=== PATIENT | male | born 1965 | race Caucasian/White ===

== ENCOUNTER 2017-02-26 19:08 | Emergency (ER) | payer MEDICAID ==
[2017-02-26 19:21] VITALS: RESP 18
[2017-02-26] MEDS ORDERED: ALBUTEROL/IPRATROPIUM 1 VIAL SOL INH ONE (19:34)
[2017-02-26] MEDS ORDERED: ONDANSETRON HCL 4 MG/2 ML 4 MG in SODIUM CHLORIDE 0.9% 100 ML 100 ML IV ONE (19:35)
[2017-02-26] MEDS ORDERED: SODIUM CHLORIDE 0.9% 1000ML 1,000 ML IV ONE (19:38)
[2017-02-26 19:40] LABS: BASOPHILS % (AUTO) 0 % (0-3); EOSINOPHILS % (AUTO) 6 % (0-9); HEMATOCRIT 38 % (39-53); MEAN CORPUSCULAR HGB CONC 33.4 gm/dl (32.0-36.0); MEAN CORPUSCULAR VOLUME 86 fL (80-100); NEUTROPHILS % (AUTO) 64.1 % (37-80)
[2017-02-26] MEDS ORDERED: ONDANSETRON HCL 4 MG/2 ML SOL ONE (19:40)
[2017-02-26] MEDS ORDERED: ALBUTEROL/IPRATROPIUM 1 VIAL SOL ONE (19:40)
[2017-02-26 19:55] LABS: ALBUMIN 3.3 gm/dl (3.4-5.0); CALCIUM 8.8 mg/dl (8.5-10.1); POTASSIUM 3.7 mMol/L (3.5-5.1)
[2017-02-26 20:02] VITALS: TEMP 97.6
[2017-02-26 20:19] LABS: APPEARANCE,URINE Clear; BILIRUBIN,URINE NEGATIVE (NEGATIVE); COLOR,URINE Yellow; GLUCOSE, URINE (UA) 1+ (NEGATIVE); KETONES,URINE NEGATIVE (NEGATIVE); LEUKOCYTE ESTERASE ,URINE NEGATIVE (NEGATIVE); NITRATE,URINE NEGATIVE (NEGATIVE); OCCULT BLOOD,URINE NEGATIVE (NEG-TRACE); UROBILINOGEN,URINE 0.2 (0.2-1.0 EU)
[2017-02-26 20:44] LABS: RBC,URINE NEGATIVE (0-3AV/HPF); WBC,URINE 0-2 (0-5AV/HPF)
[2017-02-26 22:53] VITALS: BP 126/58; PULSE 82; O2SAT 98
== END 2017-02-26 22:42 | disposition home or self-care (01) | DRG 192 ==
LOC: ED 19:08
DX: J44.1 Chronic obstructive pulmonary disease with (acute) exacerbation (principal)
CPT/HCPCS: 36415; 71010; 71275; 80053; 81001; 83880; 85025; 85378; 96365; 96374; 99284; 99285; J2405; J7620; Q9967

== ENCOUNTER 2017-10-12 14:11 | Emergency (ER) | payer MEDICAID, OTHER ==
[2017-10-12] MEDS ORDERED: SODIUM CHLORIDE 0.9% 1000ML 1,000 ML IV ONE ×2 (14:39→14:43)
[2017-10-12] MEDS ORDERED: SODIUM CHLORIDE 0.9% FLUSH 10 ML SOL IV PRN (14:43)
[2017-10-12 14:55] VITALS: TEMP 97.4
[2017-10-12 15:04] LABS: BASOPHILS % (AUTO) 1 % (0-3); EOSINOPHILS % (AUTO) 7 % (0-9); HEMATOCRIT 37 % (39-53); MEAN CORPUSCULAR HGB CONC 35.9 gm/dl (32.0-36.0); MONOCYTES % (AUTO) 4.1 % (0-12); NEUTROPHILS % (AUTO) 63.9 % (37-80)
[2017-10-12 15:05] LABS: MEAN CORPUSCULAR VOLUME 81 fL (80-100)
[2017-10-12 15:09] LABS: ALBUMIN 3.3 gm/dl (3.4-5.0); CALCIUM 8.7 mg/dl (8.5-10.1)
[2017-10-12] MEDS ORDERED: INSULIN HUMAN REGULAR 100 U/ML SOL ONE (15:26)
[2017-10-12] MEDS ORDERED: INSULIN HUMAN REGULAR 100 U/ML SOL SC SCH (15:30)
[2017-10-12 16:01] LABS: APPEARANCE,URINE Clear; BILIRUBIN,URINE NEGATIVE (NEGATIVE); COLOR,URINE Yellow; GLUCOSE, URINE (UA) 2+ (NEGATIVE); KETONES,URINE TRACE (NEGATIVE); LEUKOCYTE ESTERASE ,URINE NEGATIVE (NEGATIVE); NITRATE,URINE NEGATIVE (NEGATIVE); OCCULT BLOOD,URINE NEGATIVE (NEG-TRACE); PH,URINE 5.5; UROBILINOGEN,URINE 0.2 (0.2-1.0 EU)
[2017-10-12 16:13] LABS: AMPHETAMINES NEGATIVE (NEGATIVE); METHADONE NEGATIVE (NEGATIVE); OPIATES(OP13) NEGATIVE (NEGATIVE); OXYCODONE(OXY) NEGATIVE (NEGATIVE); PROPOXYPHENE(PPX) NEGATIVE (NEGATIVE); RBC,URINE NEGATIVE (0-3AV/HPF); TRICYCLIC ANTIDEPRESSANTS NEGATIVE (NEGATIVE); WBC,URINE 0-2 (0-5AV/HPF)
[2017-10-12 18:05] VITALS: BP 134/75; PULSE 73; RESP 16; O2SAT 97
[2017-10-12] MEDS ORDERED: ONDANSETRON HCL 4 MG/2 ML SOL IV ONE (18:16)
[2017-10-12] MEDS ORDERED: ONDANSETRON HCL 4 MG/2 ML SOL ONE (18:17)
[2017-10-12] MEDS ORDERED: LEVEMIR PEN SC ONE (19:54)
[2017-10-12] MEDS ORDERED: LEVEMIR PEN SC SCH (21:00)
== END 2017-10-12 20:16 ==
LOC: ED 14:11
DX: R53.1 Weakness (principal); W19.XXXA Unspecified fall, initial encounter; R11.2 Nausea with vomiting, unspecified; R19.7 Diarrhea, unspecified; G89.29 Other chronic pain; M54.9 Dorsalgia, unspecified; R41.0 Disorientation, unspecified; E11.65 Type 2 diabetes mellitus with hyperglycemia; Z79.4 Long term (current) use of insulin
CPT/HCPCS: 36415; 70450; 71010; 80053; 80305; 80307; 81001; 82962; 85025; 93005; 96365; 96372; 96374; 99284; 99285; J1815; J2405